=== PATIENT | female | born 1980 | race American Indian/Alaskan Native ===

== ENCOUNTER → 2018-03-30 09:02 | Outpatient (REF) | payer MEDICAID, SELFPAY | LOC: LAB 09:02 | PROVIDERS: PCP Specialist; Visit Provider Specialist | DX: K81.9 Cholecystitis, unspecified (principal); I10 Essential (primary) hypertension; N76.4 Abscess of vulva | CPT/HCPCS: 87070; 87077; 87147; 87205 ==

== ENCOUNTER → 2018-04-22 14:38 | Outpatient (CLI) | payer MEDICAID, SELFPAY | PROVIDERS: PCP Specialist; Visit Provider Specialist | DX: N76.4 Abscess of vulva (principal) | CPT/HCPCS: 87070; 87075; 87077; 87205 ==